=== PATIENT | male | born 1995 | race Caucasian/White ===

== ENCOUNTER 2021-01-11 12:59 | Outpatient (CLI) | payer MEDICARE, MEDICAID, SELFPAY ==
--- NOTE | 2021-01-11 12:45 | RT.EKG_ITS ---
APPROVED REPORT Exam: Resting ECG Reason for Exam: Baseline for use of stimulant medication Patient Location: O HR:74 bpm ECG Measurements Heart Rate 74 AXIS SC 132 P 62 QRSd 102 QRS 2 QT 361 T 2 QTc 400 Conclusion Sinus rhythm...normal P axis, V-rate 60- 99 Probable left atrial enlargement...P >50mS, <-0.10mV V1
== END 2021-01-11 13:00 | disposition home or self-care (01) ==
LOC: DI.KIM 13:01
PROVIDERS: PCP Nurse Practitioner Family; Visit Provider Nurse Practitioner Family
DX: Z79.899 Other long term (current) drug therapy (principal)
CPT/HCPCS: 93010

== ENCOUNTER 2021-02-13 04:17 | Outpatient (CLI) | payer MEDICARE, MEDICAID, SELFPAY ==
[2021-02-13 09:58] LABS: Cholesterol 150 mg/dL (<200); HDL Cholesterol 52 mg/dL (40-60)
[2021-02-13 11:33] LABS: Triglyceride < 25 mg/dL (<150)
[2021-02-13 12:26] LABS: LDL CHOLESTEROL 94 mg/dL (<100)
[2021-02-14 12:08] LABS: HIV-1/2 Ag & Ab Screen Negative (Negative)
[2021-02-14 15:03] LABS: Hepatitis C Ab w Rflx HCV PCR Negative (Negative)
== END 2021-02-13 04:18 | disposition home or self-care (01) ==
LOC: LBO 04:17
PROVIDERS: PCP Nurse Practitioner Family; Visit Provider Nurse Practitioner Family
DX: F90.0 Attention-deficit hyperactivity disorder, predominantly inattentive type (principal); Z79.899 Other long term (current) drug therapy; Z11.4 Encounter for screening for human immunodeficiency virus [HIV]; Z11.59 Encounter for screening for other viral diseases
CPT/HCPCS: 36415; 80061; 83721; 86803; 87389

== ENCOUNTER 2022-06-19 03:24 | Outpatient (CLI) | payer MEDICARE, MEDICAID, SELFPAY ==
[2022-06-19 14:24] LABS: Abs Immature Grans 0.04 10^3/uL (0.0-0.06); Absolute Basophil Count 0.05 10^3/uL (0.0-0.2); Absolute Eosinophil Count 0.56 10^3/uL (0.0-0.7); Absolute Lymphocyte Count 1.81 10^3/uL (1.2-3.4); Absolute Monocyte Count 0.76 10^3/uL (0.1-0.8); Absolute Neutrophil Count 4.21 10^3/uL (1.2-6.7); Basophils % 0.7; Eosinophils % 7.5; HGB 15.1 g/dL (13.5-17.5); Immature Grans % 0.5; Lymphocytes % 24.4; MCH 29.9 pg (27.0-33.0); MCHC 34.3 % (32.0-36.0); MCV 87 fL (80-95); MPV 9.9 fL (8.0-11.0); Monocytes % 10.2; Neutrophils % 56.7; Platelet Count 211 10^3/uL (130-400); RBC 5.05 10^6/uL (4.36-5.78); RDW 11.7 % (11.8-14.1); RDW-SD 37.5 fL; WBC 7.43 10^3/uL (4.4-10.8)
[2022-06-19 15:05] LABS: ALT 18 U/L (16-63); AST 20 U/L (15-37); Albumin 4.2 g/dL (3.4-5.0); Alkaline Phosphatase 71 U/L (46-116); Anion Gap 7.5 mmol/L (3-11); BUN 15 mg/dL (7-18); Bilirubin, Total 0.4 mg/dL (0.2-1.0); CO2 31.5 mmol/L (21.0-32.0); Calcium 8.9 mg/dL (8.5-10.1); Chloride 101 mmol/L (98-107); Estimated GFR 106.45 (mL/min/1.73m2); Glucose 101 mg/dL (74-106); Potassium 3.9 mmol/L (3.5-5.1); Sodium 140 mmol/L (136-145); TSH (W/Ref FT4) 1.33 uIU/mL (0.36-3.74); Total Protein 7.7 g/dL (6.4-8.2)
[2022-06-20 11:29] LABS: Ceruloplasmin 21.2 mg/dL
== END 2022-06-19 03:25 | disposition home or self-care (01) ==
LOC: LBO 03:25
PROVIDERS: PCP Nurse Practitioner Family; Visit Provider Nurse Practitioner Family
DX: R25.1 Tremor, unspecified (principal); F90.0 Attention-deficit hyperactivity disorder, predominantly inattentive type; Z79.899 Other long term (current) drug therapy; E83.01 Wilson's disease
CPT/HCPCS: 36415; 80053; 82390; 84443; 85025

== ENCOUNTER 2022-08-09 09:55 | Emergency (ER) | payer MEDICARE, MEDICAID, SELFPAY ==
--- NOTE | 2022-08-09 10:00 | DI.CT_ITS ---
Exam(s) CT HEAD WO EXAM: CT HEAD WO CLINICAL HISTORY: headache, tremor of right upper extremity and head. TECHNIQUE: Imaging Protocol: Axial computed tomography images with coronal and sagittal reformatted images were created and reviewed COMPARISON: No exams were available for comparison FINDINGS: Ventricles and Extra axial spaces: Normal in size and morphology for the patient's age. Hemorrhage: None. Cerebral parenchyma: Normal. Midline shift: None. Brainstem/Cerebellum: Normal. Calvarium: Normal. Visualized Paranasal sinuses/Mastoids: Minimal mucosal thickening. Soft Tissues: Unremarkable. IMPRESSION: No acute intracranial process. RADIATION DOSE DELIVERED: 733.95mGy.cm Total DLP DATA REPOSITORY: All CT scans at this facility are submitted to the National Radiology Data Registry (NRDR) Dose Index Registry (DIR) with the [employer] (A[employer]). RADIATION OPTIMIZATION: All CT scans at this facility use at least one of these dose optimization te chniques: automated exposure control; mA and/or kV adjustment per patient size (includes targeted exa ms where dose is matched to clinical indication); or iterative reconstruction.
[2022-08-09 10:01] VITALS: BP 145/74; PULSE 100; RESP 16; TEMP 36.7; O2SAT 100
--- NOTE | 2022-08-09 10:19 | ED.GENADUL_ITS ---
Discharge Plan Disposition Patient Disposition: Home Condition: Improving Discharge Details Chief Complaint: GenMedical Clinical Impression: Tremor Primary Care Provider: Glenny De La Paz ED Provider: Claudio Palma Home Meds and New Rx's Prescriptions: No Action triamcinolone acetonide 0.5 % cream 1 applic topical .BID-QID Qty: 15 0RF Rx Instructions: Apply thin film to affected area(s) two-four times daily until resolution cetirizine 10 mg tablet 10 mg PO DAILY Qty: 30 0RF omeprazole 20 mg capsule,delayed release(DR/EC) 20 mg PO DAILY Qty: 90 1RF Rx Instructions: Take 20 mg once daily in the morning at least 30 minutes before first meal dextroamphetamine-amphetamine [Adderall XR] 10 mg capsule,extended release 24hr 10 mg PO QAM MDD 10 mg Qty: 28 0RF epinephrine [EpiPen 2-Cortes] 0.3 mg/0.3 mL auto-injector 0.3 mg IM ONCE Qty: 2 0RF Rx Instructions: Administer as directed for allergic reaction. Administer second dose if no change after 10 minutes. Discharge Instructions Instructions: Tremors (ED) Additional Instructions: Please follow-up with neurology team next week as scheduled. Please return to the emergency department for any worsening symptoms. Medical Decision Making 27-year-old male history of ADHD, developmental delay, referred in for evaluation of tremor over the past several months including his head and right upper extremity, patient endorses subjective balance issue yesterday when going downstairs carrying a box, no recent fall no recent trauma no new medications. Patient is afebrile nontoxic alert oriented, no focal deficits, cranial nerves intact strength intact 5-5 upper and lower extremities, no ataxia no speech deficits. Fine intermittent brief tremor of right upper extremity involving hand wrist and forearm, lasting less than a few seconds, no tremor of head or neck. Will obtain basic labs and CT head as patient has had no neuroimaging to evaluate this condition, with the intent of ruling out intracranial mass edema or bleed which are all unlikely at this time. We will also assess for electrolyte abnormalities. Consider anxiety versus functional tremor versus medication reaction although less likely given localized symptoms. Will arrange neurology follow-up for patient upon the likely discharge from emergency department 11: 34 patient resting comfortably no acute distress. Labs and imaging unremarkable. Will refer for outpatient neuro evaluation. HPI General Date/Time Provider Initiated Documentation: 08/09/22 09:56 . HPI Narrative: 27-year-old male history of ADHD, developmental delay, brought in for evaluation of chronic tremor intermittent in nature over the past several months including his head and his right upper extremity, tremors last for a few seconds at a time, no associated numbness or weakness. Has had prior blood work but no imaging. Patient did feel unbalanced while going downstairs yesterday carrying a box. No recent trauma. Patient does take Adderall. No new medications. Related Data Home Medications Medication Instructions Recorded Confirmed cetirizine 10 mg tablet 10 mg PO DAILY hives #30 tabs 08/30/21 08/09/22 triamcinolone acetonide 0.5 % 1 applic topical .BID-QID #15 grams 09/26/21 08/09/22 topical cream epinephrine 0.3 mg/0.3 mL 0.3 mg (0.3 mL) IM ONCE ##2 05/29/22 08/09/22 injection, auto-injector (EpiPen 2-Cortes) dextroamphetamine-amphetamine ER 10 mg PO QAM #28 tab-caps 06/26/22 08/09/22 10 mg 24hr capsule,extend release (Adderall XR) omeprazole 20 mg capsule,delayed 20 mg PO DAILY #90 caps 06/26/22 08/09/22 release Previous Rx's Medication Instructions Recorded cetirizine 10 mg tablet 10 mg PO DAILY hives #30 tabs 08/30/21 triamcinolone acetonide 0.5 % 1 applic topical .BID-QID #15 grams 09/26/21 topical cream epinephrine 0.3 mg/0.3 mL 0.3 mg (0.3 mL) IM ONCE ##2 05/29/22 injection, auto-injector (EpiPen 2-Cortes) dextroamphetamine-amphetamine ER 10 mg PO QAM #28 tab-caps 06/26/22 10 mg 24hr capsule,extend release (Adderall XR) omeprazole 20 mg capsule,delayed 20 mg PO DAILY #90 caps 06/26/22 release Allergies Allergy/AdvReac Type Severity Reaction Status Date / Time venom-honey bee Allergy Severe Hives Verified 08/09/22 10:05 General Stated Complaint: GenMedical EDDA: 3 Review of Systems Narrative: Review of Systems Constitutional: negative Eyes: negative ENT: negative Cardiovascular: negative Respiratory: negative Gastrointestinal: negative : negative Musculoskeletal: negative Skin: negative Neurologic: Tremor Psych: negative PFSH All Active Problems (Updated 08/09/22 @ 11:35 by Claudio Palma MD) Tremor (Acute) Gastroesophageal reflux disease (Chronic) Developmental disorder (Chronic) Constipation (Chronic 02/05/13) Attention deficit hyperactivity disorder, 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) Medical History (Updated 08/09/22 @ 11:35 by Claudio Palma MD) Acne (02/03/15) sp accutane Food allergy (10/05/13) Thought to have had allergy to shellfish but then went to Allergy-Immunology and had skin testing which was negative and has been consuming shellfish since that time without issue (per mother) Patent pressure equalization (PE) tube (02/05/13) Surgical History (Updated 06/26/22 @ 12:29 by Glenny De La Paz NP) Status post routine circumcision Family History Mother Family history unknown Father Family history unknown Social History Smoking/Tobacco Use Status: Never Smoking risk assessment performed?: Yes Alcohol Intake: never Drug use: Never Substance use type: does not use Adopted: Yes Household members: family Number of Children: 0 Communication Needs: None 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 [employer] Pets and animals: Yes Pets and animals: dog(s) Current gender identity: male What type of physical activity do you participate in: weight lifting and additional Details: bball, gold, soccer Duration: 45-60 minutes/day Frequency: daily Seatbelt use: always Exam Narrative Exam Narrative: Physical Examination General: alert, awake, cooperative, resting comfortably, no acute distress HEENT: normocephalic, atraumatic; PERRL, EOM intact, conjunctiva normal; no na mahesh discharge; moist mucous membranes, oral and pharyngeal mucosa normal, tolerating secretions Neck: supple, trachea midline; full ROM Chest: normal to inspection Respiratory: normal respiratory effort, speaking in full sentences, clear to auscultation, no wheezing, rales or rhonchi Cardiac: regular rate, regular rhythm, S1S2 intact, no murmurs rubs or gallops GI: abdomen soft, non-tender, non-distended; no palpable mass or hepatosplenomegaly Skin: no lesions, rashes or trauma appreciated Neuro: AAOx3, normal speech, moving all extremities; cranial nerves II through XII intact, 5-5 strength upper and lower extremities, no ataxia no speech deficits; intermittent fine tremor in the right upper extremity involving hand wrist and forearm brief in nature and easily extinguishable Psych: Appropriate mood and affect Course Vital Signs Vital signs: Vital Signs Temperature 36.7 C 08/09/22 10:01 Pulse 100 H 08/09/22 10:01 Respiratory Rate 16 08/09/22 10:01 Blood Pressure 145/74 H 08/09/22 10:01 Pulse Oximetry 100 08/09/22 10:01 Temperature 36.7 C 08/09/22 10:01 Temperature Source Temporal Artery Scan 08/09/22 10:01 Pulse 100 H 08/09/22 10:01 Respiratory Rate 16 08/09/22 10:01 Respiratory Effort Non-Labored 08/09/22 10:06 Blood Pressure 145/74 H 08/09/22 10:01 Blood Pressure Position Sitting 08/09/22 10:01 Pulse Oximetry 100 08/09/22 10:01 Oxygen Delivery Method Room Air 08/09/22 10:01 Oxygen Flow Rate 0 08/09/22 10:01
[2022-08-09 10:57] LABS: Abs Immature Grans 0.11 10^3/uL (0.0-0.06); Absolute Basophil Count 0.07 10^3/uL (0.0-0.2); Absolute Eosinophil Count 0.57 10^3/uL (0.0-0.7); Absolute Lymphocyte Count 1.55 10^3/uL (1.2-3.4); Absolute Neutrophil Count 3.52 10^3/uL (1.2-6.7); Basophils % 1.1; Eosinophils % 8.6; HCT 42.3 % (40.0-50.0); HGB 14.6 g/dL (13.5-17.5); Immature Grans % 1.7; Lymphocytes % 23.4; MCHC 34.5 % (32.0-36.0); MCV 87 fL (80-95); MPV 9.8 fL (8.0-11.0); Monocytes % 12.1; Neutrophils % 53.1; Platelet Count 204 10^3/uL (130-400); RBC 4.87 10^6/uL (4.36-5.78); RDW 11.9 % (11.8-14.1); RDW-SD 37.7 fL; WBC 6.62 10^3/uL (4.4-10.8)
[2022-08-09 11:13] LABS: ALT 15 U/L (16-63); AST 17 U/L (15-37); Alkaline Phosphatase 82 U/L (46-116); Anion Gap 4.2 mmol/L (3-11); BUN 13 mg/dL (7-18); Bilirubin, Total 0.4 mg/dL (0.2-1.0); CO2 31.8 mmol/L (21.0-32.0); CREATININE 0.9 mg/dL (0.70-1.30); Calcium 8.9 mg/dL (8.5-10.1); Chloride 101 mmol/L (98-107); Glucose 92 mg/dL (74-106); Potassium 4.4 mmol/L (3.5-5.1); Sodium 137 mmol/L (136-145); Total Protein 7.4 g/dL (6.4-8.2)
[2022-08-09 11:30] VITALS: BP 122/88; PULSE 76; RESP 14; TEMP 37; O2SAT 99
--- NOTE | 2022-08-09 17:55 | NUR.NOTE ---
Nursing Note: PT info faxed to Neurology for follow up next week for tremors. Karla, ED
== END 2022-08-09 11:52 | disposition home or self-care (01) ==
PROVIDERS: Emergency Provider Emergency Medicine; PCP Nurse Practitioner Family
DX: R25.1 Tremor, unspecified (principal)
CPT/HCPCS: 80053; 99284; 70450; 83735; 85025; 99282

== ENCOUNTER 2022-08-28 13:39 | Outpatient (CLI) | payer MEDICARE, MEDICAID, SELFPAY ==
--- NOTE | 2022-08-28 13:30 | RT.EKG_ITS ---
APPROVED REPORT Exam: Resting ECG Reason for Exam: Screening due to use of stimulant medication Patient Location: O HR:72 bpm ECG Measurements Heart Rate 72 AXIS NJ 133 P 63 QRSd 106 QRS -9 QT 382 T 2 QTc 419 Conclusion Sinus rhythm...normal P axis, V-rate 50- 99
== END 2022-08-28 13:40 | disposition home or self-care (01) ==
LOC: DI.KIM 13:39
PROVIDERS: PCP Nurse Practitioner Family; Visit Provider Nurse Practitioner Family
DX: Z51.81 Encounter for therapeutic drug level monitoring (principal)
CPT/HCPCS: 93010

== ENCOUNTER 2022-10-08 21:52 | Emergency (ER) | payer MEDICARE, MEDICAID, SELFPAY ==
[2022-10-08 21:54] VITALS: BP 128/88; PULSE 100; RESP 18; TEMP 36.9; O2SAT 97
[2022-10-08 22:45] VITALS: RESP 19
--- NOTE | 2022-10-08 23:13 | W.ED.GENAD ---
Discharge Plan Disposition Patient Disposition: Home Condition: Good Discharge Details Clinical Impression: Tremor Primary Care Provider: Glenny De La Paz ED Provider: Jose J Trujillo Home Meds and New Rx's Prescriptions: Continued triamcinolone acetonide 0.5 % cream 1 applic topical .BID-QID Qty: 15 0RF Rx Instructions: Apply thin film to affected area(s) two-four times daily until resolution cetirizine 10 mg tablet 10 mg PO DAILY Qty: 30 0RF dextroamphetamine-amphetamine [Adderall XR] 10 mg capsule,extended release 24hr 10 mg PO QAM MDD 10 mg Qty: 28 0RF omeprazole 20 mg capsule,delayed release(DR/EC) 20 mg PO DAILY Qty: 90 1RF Rx Instructions: Take 20 mg once daily in the morning at least 30 minutes before first meal epinephrine [EpiPen 2-Cortes] 0.3 mg/0.3 mL auto-injector 0.3 mg IM ONCE Qty: 2 0RF Rx Instructions: Administer as directed for allergic reaction. Administer second dose if no change after 10 minutes. dextroamphetamine-amphetamine [Adderall XR] 10 mg capsule,extended release 24hr 10 mg PO QAM MDD 10 Qty: 28 0RF dextroamphetamine-amphetamine [Adderall XR] 10 mg capsule,extended release 24hr 10 mg PO QAM MDD 10 Qty: 28 0RF Discharge Instructions Instructions: Tremors (ED) Additional Instructions: Your laboratory work-up has returned normal. Please follow-up closely with your primary care provider. If you notice any worsening of your symptoms, or any new symptoms such as vomiting, diarrhea, fever, chills, shortness of breath, chest pain, numbness, weakness, or fainting , please return immediately to the emergency department for reevaluation. Please follow up with your primary care provider as soon as possible for reassessment and reevaluation. As always, it was a pleasure participating in your medical care today. Referrals: Glenny De La Paz NP [Primary Care Provider] - Discharge Data Discharge Date/Time-TO BE ENTERED AT DEPARTURE: 10/09/22 00:36 Medical Decision Making <Roque Jeffries NP - Last Filed: 10/10/22 09:58> Patient presenting to the emergency department for chief complaint of upper and lower extremity tremors. This started at random this afternoon and did not stop until almost before arrival to the emergency department. Patient states previous history of right upper extremity tremors which she was seen in the emergency department for and discharged with follow-up to neurology which is taking place in approximately 1 month. Primary care provider has seen patient and felt that overuse syndrome of right upper extremity was more than likely the cause of tremors. Patient and mother deny any specific exhibiting factors for precursors to symptoms starting and deny that they did any treatments to get shaking to stop. Patient does have past medical history of of significant ADHD, developmental disorder. Neurological exam was completely unremarkable. At one moment there was a fine tremor noted for only brief seconds of the right upper extremity but this was distractible as soon as I began performing further testing tremor stopped and did not return. All other aspects of the exam were benign and unremarkable. At this time I do not feel that patient requires head CT imaging given that this was just performed a couple months ago and was negative for similar complaint. We will recheck patient's lab including thyroid. Patient does state slight aching of muscles so we will give acetaminophen pending results. <Jose J Trujillo, - Last Filed: 10/09/22 00:31> Patient presenting to the emergency department for chief complaint of upper and lower extremity tremors. This started at random this afternoon and did not stop until almost before arrival to the emergency department. Patient states previous history of right upper extremity tremors which she was seen in the emergency department for and discharged with follow-up to neurology which is taking place in approximately 1 month. Primary care provider has seen patient and felt that overuse syndrome of right upper extremity was more than likely the cause of tremors. Patient and mother deny any specific exhibiting factors for precursors to symptoms starting and deny that they did any treatments to get shaking to stop. Patient does have past medical history of of significant ADHD, developmental disorder. Neurological exam was completely unremarkable. At one moment there was a fine tremor noted for only brief seconds of the right upper extremity but this was distractible as soon as I began performing further testing tremor stopped and did not return. All other aspects of the exam were benign and unremarkable. At this time I do not feel that patient requires head CT imaging given that this was just performed a couple months ago and was negative for similar complaint. We will recheck patient's lab including thyroid. Patient does state slight aching of muscles so we will give acetaminophen pending results. 12:[address] Trujillo's documentation Patient was signed out to me by my colleague Ernei Jeffries. Please refer to his HPI, physical exam, assessment and plan. At time of signout we are awaiting laboratory work-up, laboratory work-up has returned normal, patient appears notably clinically well, no tremor at all on reassessment. No evidence of acute focal neurologic deficit. Patient stable for discharge. Discussed plan with family and they are in agreement. I have extensively reviewed the treatment plan and discharge instructions with the patient and their family. I have addressed all patient concerns at this time. The patient and family was made aware of what symptoms to monitor for that would warrant a return to the emergency department. Discussed the plan with the patient and family, they demonstrate verbal understanding and agreement with our assessment and plan at this time. The documentation in this chart was dictated using [employer] dictation software. Please excuse any dictation errors. HPI <Roque Jeffries NP - Last Filed: 10/10/22 09:58> General Mode of arrival: ambulatory. Date/Time Provider Initiated Documentation: 10/08/22 21:54. Limitations to Documentation: no limitations. Information obtained by: patient, family and RN notes reviewed. History of Present Illness 27 year old M presents to the emergency department with the chief complaint of Upper and lower extremity tremors, described as mild, with intensity rated at 2. Quality is described as aching, and is localized to the lower extremity. Patient started experiencing this day(s) (7) and it has been constant. No relieving factors improve symptom(s), No exacerbating factors reported . Patient notes no other symptoms.. Patient did receive the following treatments prior to arrival, none Related Data Home Medications Medication Instructions Recorded Confirmed cetirizine 10 mg tablet 10 mg PO DAILY hives #30 tabs 08/30/21 08/28/22 triamcinolone acetonide 0.5 % 1 applic topical .BID-QID #15 grams 09/26/21 08/28/22 topical cream epinephrine 0.3 mg/0.3 mL 0.3 mg (0.3 mL) IM ONCE ##2 05/29/22 08/28/22 injection, auto-injector (EpiPen 2-Cortes) omeprazole 20 mg capsule,delayed 20 mg PO DAILY #90 caps 06/26/22 08/28/22 release dextroamphetamine-amphetamine ER 10 mg PO QAM #28 tab-caps 08/28/22 08/28/22 10 mg 24hr capsule,extend release (Adderall XR) dextroamphetamine-amphetamine ER 10 mg PO QAM #28 tab-caps 09/12/22 10 mg 24hr capsule,extend release (Adderall XR) dextroamphetamine-amphetamine ER 10 mg PO QAM #28 tab-caps 09/12/22 10 mg 24hr capsule,extend release (Adderall XR) Previous Rx's Medication Instructions Recorded cetirizine 10 mg tablet 10 mg PO DAILY hives #30 tabs 08/30/21 triamcinolone acetonide 0.5 % 1 applic topical .BID-QID #15 grams 09/26/21 topical cream epinephrine 0.3 mg/0.3 mL 0.3 mg (0.3 mL) IM ONCE ##2 05/29/22 injection, auto-injector (EpiPen 2-Cortes) omeprazole 20 mg capsule,delayed 20 mg PO DAILY #90 caps 06/26/22 release dextroamphetamine-amphetamine ER 10 mg PO QAM #28 tab-caps 08/28/22 10 mg 24hr capsule,extend release (Adderall XR) dextroamphetamine-amphetamine ER 10 mg PO QAM #28 tab-caps 09/12/22 10 mg 24hr capsule,extend release (Adderall XR) dextroamphetamine-amphetamine ER 10 mg PO QAM #28 tab-caps 09/12/22 10 mg 24hr capsule,extend release (Adderall XR) Allergies Allergy/AdvReac Type Severity Reaction Status Date / Time venom-honey bee Allergy Severe Hives Verified 08/28/22 14:52 General Stated Complaint: GenMedical EDDA: 4 Review of Systems <Roque Jeffries NP - Last Filed: 10/10/22 09:58> Constitutional Constitutional: Denies chills, Denies fever(s), Denies frequent falls, Denies headache(s), Denies malaise, Denies poor appetite and Denies weakness Eyes Eyes: Denies change in vision ENT Ears, Nose, Mouth, and Throat: Denies vertigo, Denies dizziness and Denies headache(s) Cardiovascular Cardiovascular: Denies chest pain, Denies syncope, Denies rapid heart rate, Denies irregular heart rhythm and Denies dyspnea Respiratory Respiratory: Denies cough and Denies dyspnea Gastrointestinal Gastrointestinal: Denies abdominal pain, Denies diarrhea, Denies nausea and Denies vomiting Genitourinary Genitourinary: Denies oliguria Musculoskeletal Musculoskeletal: Reports as per HPI, Denies muscle cramps, Denies muscle weakness, Denies numbness and Denies tingling Integumentary/Breasts Skin/Breast: Denies rash Neurologic Neurologic: Reports as per HPI, Reports abnormal movements, Denies behavioral changes, Denies confusion, Denies vertigo, Denies dizziness, Denies syncope, Denies frequent falls, Denies headache(s), Denies localized weakness, Denies numbness, Denies convulsions, Denies seizure-like activity, Denies sensory deficit, Denies tingling, Denies paresthesias and Denies weakness Psychiatric Psychiatric: Denies anxiety, Denies behavioral changes and Denies confusion PFS <Roque Jeffries NP - Last Filed: 10/10/22 09:58> All Active Problems (Updated 10/09/22 @ 00:29 by Jose J Trujillo DO) Tremor (Acute) Right forearm pain (Acute) Gastroesophageal reflux disease (Chronic) Developmental disorder (Chronic) Constipation (Chronic 02/05/13) Attention deficit hyperactivity disorder, 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) Medical History Acne (02/03/15) sp accutane Food allergy (10/05/13) Thought to have had allergy to shellfish but then went to Allergy-Immunology and had skin testing which was negative and has been consuming shellfish since that time without issue (per mother) Patent pressure equalization (PE) tube (02/05/13) Surgical History Status post routine circumcision Family History Mother Depression Father Alcohol use disorder Asthma Depression Heart disease Hypertension Paternal Grandfather Alcohol use disorder Maternal Grandfather Alcohol use disorder Paternal Grandmother Alcohol use disorder Other Adopted Social History Smoking/Tobacco Use Status: Never Smoking risk assessment performed?: Yes Alcohol Intake: never Drug use: Never Substance use type: does not use Adopted: Yes Caregiver/Support person: Yes Foster care: Yes Household members: family Housing: house Number of Children: 0 Communication Needs: None Education Level: high school Do you need help understanding health information?: Always 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 [employer] Pets and animals: Yes Pets and animals: dog(s) Sexually active: No Do you think of yourself as: straight/heterosexual Current gender identity: male What is your relationship status?: never How often do you talk on the phone with friends or family?: twice per week How often do you get together with friends or relatives?: three or more times per week Do you belong to any clubs or organized social groups?: yes Panel score (0-1 are the most socially isolated patients): 2 What type of physical activity do you participate in: weight lifting and additional Details: bball, golf, bowling, walking Duration: 15-30 minutes/day Frequency: daily Phoebe/Sikh: None Seatbelt use: always Helmet use: Yes Drive intox or ride w/intox 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: No Do you feel safe at home: Yes Do you feel safe in your relationship?: Yes Exam <Roque Jeffries NP - Last Filed: 10/10/22 09:58> Const General: cooperative, healthy appearing, no acute distress and well groomed Orientation: alert, awake and oriented x3 HENMT Head: normal to inspection Ears: hearing grossly normal bilaterally and TM's normal bilaterally Mouth: oral mucosae normal and moist mucous membranes Throat: posterior oropharynx normal Eyes Visual Muñoz: normal visual muñoz by confrontation Alignment and Position: alignment normal Periorbital: periorbital findings normal Eyelids: eyelids normal Sclera: sclerae normal Cornea: corneas normal Pupils: PERRL EOM: EOM intact bilaterally Neck Neck: normal visual inspection, full ROM, no lymphadenopathy and no meningeal signs Resp Effort & Inspection: normal respiratory effort and able to speak in complete sentences Auscultation: clear to auscultation bilaterally Cardio Rate: regular rate Rhythm: regular rhythm Heart Sounds: S1 normal and S2 normal Neuro General: patient alert, patient awake, patient oriented x3, gait normal, tone normal, moves all extremities, CN's II-XI intact bilaterally and not confused Cranial Nerves: CN's II-XI intact bilaterally Cognition: normal cognition Speech: speech normal Gait: normal gait Motor: muscle tone normal throughout, strength 5/5 throughout, no pronator drift, no movement abnormalities noted and no fasciculations Sensory Exam: no sensory deficits noted DTR's: Rt Brachioradialis: 2+, Lt Brachioradialis: 2+, Rt Patellar: 2+, Lt Patellar: 2+, Rt Ankle: 2+ and Lt Ankle: 2+ Coordination: [id number] test normal, Romberg test normal, Does not sway with eyes open, rapid alternating movement UE normal and rapid alternating movement LE normal Course <Roque Jeffries NP - Last Filed: 10/10/22 09:58> Vital Signs Vital signs: Vital Signs Temperature 36.9 C 10/08/22 21:54 Pulse 100 H 10/08/22 21:54 Respiratory Rate 18 10/08/22 21:54 Blood Pressure 128/88 10/08/22 21:54 Pulse Oximetry 97 10/08/22 21:54 Temperature 36.9 C 10/08/22 21:54 Temperature Source Oral 10/08/22 21:54 Pulse 100 H 10/08/22 21:54 Respiratory Rate 19 10/08/22 22:45 Respiratory Effort Normal, Non-Labored 10/08/22 22:45 Respiratory Depth Normal 10/08/22 22:45 Respiratory Pattern Normal 10/08/22 22:45 Blood Pressure 128/88 10/08/22 21:54 Blood Pressure Position Sitting 10/08/22 21:54 Pulse Oximetry 97 10/08/22 21:54 Oxygen Delivery Method Room Air 10/08/22 21:54 Oxygen Flow Rate 0 10/08/22 21:54 Pain Level 10 10/08/22 21:54 Sign Out <Roque Jeffries NP - Last Filed: 10/10/22 09:58> Sign Out Data: Sign Out Comment: Patient signed out pending review of labs, reassessment and disposition for resolved tremors. Suspect discharge disposition with patient to continue follow-up with neurology as previously arranged. Last updated by Roque Jeffries NP at 10/08/22 23:41
[2022-10-08] MEDS: Acetaminophen 325 MG TAB 650 MG PO (23:26)
[2022-10-08 23:34] LABS: Abs Immature Grans 0.04 10^3/uL (0.0-0.06); Absolute Basophil Count 0.05 10^3/uL (0.0-0.2); Absolute Lymphocyte Count 2.02 10^3/uL (1.2-3.4); Absolute Neutrophil Count 4.55 10^3/uL (1.2-6.7); Basophils % 0.6; Eosinophils % 4.9; HCT 42.4 % (40.0-50.0); HGB 14.4 g/dL (13.5-17.5); Immature Grans % 0.5; Lymphocytes % 24.8; MCH 29.5 pg (27.0-33.0); MCV 87 fL (80-95); MPV 9.8 fL (8.0-11.0); Monocytes % 13.5; Neutrophils % 55.7; Platelet Count 234 10^3/uL (130-400); RBC 4.88 10^6/uL (4.36-5.78); RDW 11.9 % (11.8-14.1); WBC 8.16 10^3/uL (4.4-10.8)
[2022-10-08 23:58] LABS: ALT 17 U/L (16-63); AST 17 U/L (15-37); Albumin 4.1 g/dL (3.4-5.0); Alkaline Phosphatase 84 U/L (46-116); Anion Gap 7.3 mmol/L (3-11); BUN 16 mg/dL (7-18); Bilirubin, Total 0.3 mg/dL (0.2-1.0); CO2 30.7 mmol/L (21.0-32.0); CREATININE 1.1 mg/dL (0.70-1.30); Calcium 8.6 mg/dL (8.5-10.1); Chloride 101 mmol/L (98-107); Estimated GFR 94.95 (mL/min/1.73m2); Glucose 96 mg/dL (74-106); Magnesium 2.2 mg/dL (1.8-2.4); Potassium 3.9 mmol/L (3.5-5.1); Sodium 139 mmol/L (136-145); Total Protein 7.1 g/dL (6.4-8.2)
[2022-10-09 00:35] VITALS: BP 127/91; PULSE 77; RESP 22; TEMP 36.6; O2SAT 99
== END 2022-10-09 00:36 | disposition home or self-care (01) ==
PROVIDERS: Nurse Practitioner Family; Emergency Provider Student in an Organized Health Care Education/Training Program; PCP Nurse Practitioner Family
DX: R25.1 Tremor, unspecified (principal); F90.9 Attention-deficit hyperactivity disorder, unspecified type
CPT/HCPCS: 80053; 99283; 83735; 84443; 85025

== ENCOUNTER → 2022-12-17 09:47 | Outpatient (BNVA) | payer MEDICARE, MEDICAID, SELFPAY | PROVIDERS: PCP Nurse Practitioner Family; Referring Provider Nurse Practitioner Family; Visit Provider Psychiatry & Neurology Neurology | DX: R25.1 Tremor, unspecified (principal) | CPT/HCPCS: 99214 ==

== ENCOUNTER 2024-09-12 22:41 | Emergency (ER) | payer MEDICARE, MEDICAID, SELFPAY ==
[2024-09-12 22:43] VITALS: BP 117/74; PULSE 119; RESP 20; TEMP 38.8; O2SAT 98
[2024-09-12 22:50] VITALS: BP 117/74; PULSE 119; RESP 20; TEMP 38.8; O2SAT 98
--- NOTE | 2024-09-12 23:12 | ED.GENADUL_ITS ---
Discharge Plan Disposition Patient Disposition: Home Condition: Good Discharge Details Clinical Impression: Fever, Upper respiratory infection, Headache Primary Care Provider: Elba Rausch ED Provider: Analia Estes Home Meds and New Rx's Prescriptions: Continued multivitamin Tablet 1 tab PO DAILY dextroamphetamine-amphetamine [Adderall XR] 10 mg capsule,extended release 24hr 10 mg PO QAM MDD 10 mg Qty: 28 0RF dextroamphetamine-amphetamine [Adderall XR] 10 mg capsule,extended release 24hr 10 mg PO QAM MDD 10 Qty: 28 0RF dextroamphetamine-amphetamine [Adderall XR] 10 mg capsule,extended release 24hr 10 mg PO QAM MDD 10 mg Qty: 28 0RF epinephrine [EpiPen 2-Cortes] 0.3 mg/0.3 mL auto-injector 0.3 mg IM ONCE Qty: 2 6RF Rx Instructions: Administer as directed for allergic reaction. Administer second dose if no change after 10 minutes. Discharge Instructions Instructions: Fever, Adult ED, Upper Respiratory Infection ED Additional Instructions: 650mg acetaminophen and 400mg ibuprofen over the counter for fever and headache You can alternate every three hours for example ibuprofen at noon, acetaminophen at 3pm, ibuprofen at 6pm, acetaminophen at 9pm, and so on. Call your primary care doctor in the morning to schedule an appointment for within the following 48 hours to followup on your visit here. Get an oral thermometer for temperature checks. Return to the emergency department for new or worsening symptoms including fever that does not respond to medication, worsening headache, neck pain or stiffness, vomiting, difficulty breathing, or if you have any other concerns. Referrals: Elba Rausch, ZHOU [Primary Care Provider] - [facility] General Mode of arrival: ambulatory . Date/Time Provider Initiated Documentation: 09/12/24 22:42 . Limitations to Documentation: no limitations . Information obtained by: patient and family . HPI Narrative: 29yo M with hx GERD, ADHD, developmental delay, presenting for fever and he adache. History from patient and mother at bedside. [place] well yesterday. This morning woke with headache for which he was given ibuprofen. This seemed to help. As the day went on he developed cough, sore throat, rhinnorhea, and body aches. Mother checked his temperature at 9pm with infrafred thermometer and temp was 104; took advil at that point. Repeat temp (via the same method) was 106 an hour later. Highest temp was noted to be 109. Decreased PO intake today 2/t sore throat. No neck pain, photophobia, vision changes, numbness, focal weakness, nausea, vomiting, diarrhea, abdominal pain, dysuria, hematuria, shortness of breath, or chest pain. Decreased PO intake today 2/t sore throat. Related Data Home Medications ?Medication ?Instructions ?Recorded ?Confirmed multivitamin 1 tab PO DAILY 12/17/22 09/12/24 epinephrine 0.3 mg/0.3 mL 0.3 mg (0.3 mL) IM ONCE ##2 03/23/24 09/12/24 injection, auto-injector (EpiPen 2-Cortes) dextroamphetamine-amphetamine ER 10 mg PO QAM #28 tab-caps 09/06/24 09/12/24 10 mg 24hr capsule,extend release (Adderall XR) dextroamphetamine-amphetamine ER 10 mg PO QAM #28 tab-caps 09/06/24 09/12/24 10 mg 24hr capsule,extend release (Adderall XR) dextroamphetamine-amphetamine ER 10 mg PO QAM #28 tab-caps 25 09/12/24 10 mg 24hr capsule,extend release (Adderall XR) Previous Rx's ?Medication ?Instructions ?Recorded epinephrine 0.3 mg/0.3 mL 0.3 mg (0.3 mL) IM ONCE ##2 03/23/24 injection, auto-injector (EpiPen 2-Cortes) dextroamphetamine-amphetamine ER 10 mg PO QAM #28 tab-caps 09/06/24 10 mg 24hr capsule,extend release (Adderall XR) dextroamphetamine-amphetamine ER 10 mg PO QAM #28 tab-caps 09/06/24 10 mg 24hr capsule,extend release (Adderall XR) dextroamphetamine-amphetamine ER 10 mg PO QAM #28 tab-caps 09/06/24 10 mg 24hr capsule,extend release (Adderall XR) Allergies Allergy/AdvReac Type Severity Reaction Status Date / Time venom-honey bee Allergy Severe Hives Verified 09/12/24 22:49 General Stated Complaint: Fever EDDA: 3 Review of Systems Narrative: see HPI Exam Narrative Exam Narrative: General: Alert, non-toxic, well nourished, in no acute distress. Head: Normocephalic, atraumatic Neck: Trachea midline, ?Neck supple. ENT: ?MMM.? No oropharygeal lesions or exudate. Cardiac: ?Tachycardiac, regular, no murmurs appreciated Resp: No respiratory distress. CTAB. Abd: ?Soft, non-distended, nontender : ?No suprapubic tenderness. No CVA tenderness. Extremities: ?No deformities.? No peripheral edema. Skin: Scattered blanchable erythematous macules on torso consistent with hives/urticaria. No dermatomal pattern. No vesicles or pustules. No pettechial rash. Neurologic: GCS 15. ? Moves all extremities freely against gravity. PERRL, no photophobia. No neck stiffness. - Danny. - Marley Course Vital Signs Vital signs: Vital Signs Temperature 38.8 C H 09/12/24 22:43 Pulse 119 H 09/12/24 22:43 Respiratory Rate 20 09/12/24 22:43 Blood Pressure 117/74 09/12/24 22:43 Pulse Oximetry 98 09/12/24 22:43 Temperature 38.8 C H 09/12/24 22:50 Temperature Source Oral 09/12/24 22:50 Pulse 119 H 09/12/24 22:50 Respiratory Rate 20 09/12/24 22:50 Blood Pressure 117/74 09/12/24 22:50 Blood Pressure Position Sitting 09/12/24 22:50 Pulse Oximetry 98 09/12/24 22:50 Oxygen Delivery Method Room Air 09/12/24 22:50 Oxygen Flow Rate 0 09/12/24 22:43 Pain Level 6 09/12/24 22:50 Lab/Test Results Lab/Test Results: 09/12/24 23:08 Blood Blood Culture - Pending 09/12/24 23:08 Blood Blood Culture - Pending Medical Decision Making 29yo M with hx GERD, ADHD, developmental delay, presenting for fever and headache. History from patient and mother at bedside. This morning woke with headache, as the day went on he developed cough, sore throat, rhinnorhea, and body aches. Fever noted at 9pm, checked with infrared thermometer and reportedly as high as 109F. I do think this was an accurate reading. Febrrile on arrival here at 38.8C (101.8) and tachycardia to 110's, vital signs otherwise reassuring. Non-toxic on exam, lungs CTAB, no respiratory distress. He does have scattered urticaria on his torso; no pettechial rash or clear viral xantham. Mother reports he often gets hives identical to this when 'stressed' or ill. No neck stiffness, photophobia, vomiting and - Kernig and Brudzinski; unlikely meningitits, would not get LP at this time. Is SIRS positive however suspect most likely viral URI; would not treat empirically for sepsis with abx/aggressive fluid resus. Will give tylenol and toradol for fever and headache and out of abundance of caution send blood cultures. With no shortness of breath, good O2 sat, clear lungs, and one day of symptoms unlikely pneumonia; little utility to CXR at this time. -Labs reviewed as below, CBC reassuring with no leukocytosis or anemia, CMP with no actionable abnormalities and no acidosis, lactate normal. UA not infected. -Respiratory viral swabs negative. On reassessment he reports his headache has much improved. No longer febrile. Remains slightly tachycardiac to mid 90's-low 100's; may have component of volume depletion 2/t decreased PO. Will give IVF and reassess. After fluids HR 85. Headache resolved. Approrpiate for discharge home with PCP followup. Discharge instructions and strict return precautions were reviewed with patient and mother who verbalized understanding. All questions were answered and they are in full agreement with the plan. Lab Data Lab results reviewed: Yes I reviewed the patient's lab results. Labs: 09/13/24 00:05 Blood Blood Culture - Pending 09/12/24 23:22 Blood Blood Culture - Pending Laboratory Tests Range/Units 09/12/24 09/12/24 09/13/24 22:55 23:22 00:24 WBC (4.4-10.8) 10^3/uL 7.79 RBC (4.36-5.78) 10^6/uL 4.66 Hgb (13.5-17.5) g/dL 13.9 Hct (40.0-50.0) % 40.3 MCV (80-95) fL 87 MCH (27.0-33.0) pg 29.8 MCHC (32.0-36.0) % 34.5 RDW (11.8-14.1) % 11.8 Plt Count (130-400) 10^3/uL 148 MPV (8.0-11.0) fL 9.9 Immature Gran % % 0.8 Neutrophils % % 71.4 Lymphocytes % % 4.6 Monocytes % % 19.0 Eosinophils % % 3.7 Basophils % % 0.5 Nucleated RBC % (0.0-0.3) % 0.0 Absolute Neutrophils (1.2-6.7) 10^3/uL 5.56 Absolute Lymphocytes (1.2-3.4) 10^3/uL 0.36 L Absolute Monocytes (0.1-0.8) 10^3/uL 1.48 H Absolute Eosinophils (0.0-0.7) 10^3/uL 0.29 Absolute Basophils (0.0-0.2) 10^3/uL 0.04 VBG Lactate (<or=2.0) mmol/L 0.9 Sodium (136-145) mmol/L 137 Potassium (3.5-5.1) mmol/L 3.5 Chloride (98-107) mmol/L 100 Carbon Dioxide (21.0-32.0) mmol/L 30.1 Anion Gap (3-11) mmol/L 6.9 BUN (7-18) mg/dL 17 Creatinine (0.70-1.30) mg/dL 1.1 Est GFR (CKD-EPI 2020) (mL/min/1.73m2) 93.77 Glucose (74-106) mg/dL 126 H Calcium (8.5-10.1) mg/dL 8.8 Total Bilirubin (0.2-1.0) mg/dL 0.28 AST (15-37) U/L 15 ALT (16-63) U/L 16 Alkaline Phosphatase (46-116) U/L 69 Total Protein (6.4-8.2) g/dL 7.0 Albumin (3.4-5.0) g/dL 3.8 Urine Color (Yellow) Yellow Urine Clarity (Clear) Clear Urine pH (5-8) 7.0 Ur Specific [place] (1.005-1.025) 1.015 Urine Protein (Neg-Trace) mg/dL Negative Urine Ketones (Negative) mg/dL Negative Urine Blood (Negative) Negative Urine Nitrite (Negative) Negative Urine Bilirubin (Negative) Negative Urine Urobilinogen (Up to 0.2) mg/dL 0.2 Ur Leukocyte Esterase (Negative) Negative Urine Glucose (Negative) mg/dL Negative COVID-19 Source Nasopharynx SARS-CoV-2 (PCR) (Negative) Negative Influenza Type A (PCR) (Negative) Negative Influenza Type B (PCR) (Negative) Negative RSV (PCR) (Negative) Negative Quality:SDOH Health Related Social Needs: No Data to Display PFSH All Active Problems (Updated 09/13/24 @ 01:16 by Analia Estes MD) Headache (Acute) Upper respiratory infection (Acute) Fever (Acute) Right forearm pain (Acute) Gastroesophageal reflux disease (Chronic) Developmental disorder (Chronic) Attention deficit hyperactivity disorder, 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) Medical History Acne (02/03/15) sp accutane Constipation (02/05/13) Food allergy (10/05/13) Thought to have had allergy to shellfish but then went to Allergy-Immunology and had skin testing which was negative and has been consuming shellfish since that time without issue (per mother) Patent pressure equalization (PE) tube (02/05/13) Wrist fracture, right Surgical History Status post routine circumcision Family History Mother Depression Father Alcohol use disorder Asthma Depression Heart disease Hypertension Paternal Grandfather Alcohol use disorder Maternal Grandfather Alcohol use disorder Paternal Grandmother Alcohol use disorder Other Adopted Social History Smoking/Tobacco Use Status: Never Smoking risk assessment performed?: Yes Alcohol Intake: never Drug use: Never Substance use type: does not use Adopted: Yes Caregiver/Support person: Yes Foster care: Yes Household members: family Housing: house Number of Children: 0 Communication Needs: None Education Level: high school Do you need help understanding health information?: Always 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 [employer] Pets and animals: Yes Pets and animals: dog(s) Sexually active: No Do you think of yourself as: straight/heterosexual Current gender identity: male What is your relationship status?: never How often do you talk on the phone with friends or family?: twice per week How often do you get together with friends or relatives?: three or more times per week Do you belong to any clubs or organized social groups?: yes Panel score (0-1 are the most socially isolated patients): 2 What type of physical activity do you participate in: weight lifting and additional Details: bball, golf, bowling, walking Duration: 15-30 minutes/day Frequency: daily Phoebe/Faith: None Seatbelt use: always Helmet use: Yes Drive intox or ride w/intox electric train driver: No Do you feel safe at home: Yes Do you feel safe in your relationship?: Yes
[2024-09-12] MEDS: Ketorolac 15 MG/ML VIAL IVP (23:26)
[2024-09-12] MEDS: ACETAMINOPHEN 1,000 MG/100 ML BAG 400 MG IVPB (23:26)
[2024-09-12 23:29] LABS: Lactate 0.9 mmol/L (<or=2.0)
[2024-09-12 23:34] LABS: Abs Immature Grans 0.06 10^3/uL (0.0-0.06); Absolute Basophil Count 0.04 10^3/uL (0.0-0.2); Absolute Eosinophil Count 0.29 10^3/uL (0.0-0.7); Absolute Lymphocyte Count 0.36 10^3/uL (1.2-3.4); Absolute Monocyte Count 1.48 10^3/uL (0.1-0.8); Absolute Neutrophil Count 5.56 10^3/uL (1.2-6.7); Basophils % 0.5 %; Eosinophils % 3.7 %; HCT 40.3 % (40.0-50.0); HGB 13.9 g/dL (13.5-17.5); Immature Grans % 0.8 %; Lymphocytes % 4.6 %; MCH 29.8 pg (27.0-33.0); MCHC 34.5 % (32.0-36.0); MCV 87 fL (80-95); MPV 9.9 fL (8.0-11.0); Neutrophils % 71.4 %; Platelet Count 148 10^3/uL (130-400); RBC 4.66 10^6/uL (4.36-5.78); RDW 11.8 % (11.8-14.1); RDW-SD 37.8 fL; WBC 7.79 10^3/uL (4.4-10.8)
[2024-09-12 23:41] LABS: COVID-19 PCR Negative (Negative); Influenza A PCR Negative (Negative); Influenza B PCR Negative (Negative); RSV PCR Negative (Negative)
[2024-09-12 23:42] LABS: Source Nasopharynx
[2024-09-12 23:49] LABS: ALT 16 U/L (16-63); AST 15 U/L (15-37); Albumin 3.8 g/dL (3.4-5.0); Alkaline Phosphatase 69 U/L (46-116); Anion Gap 6.9 mmol/L (3-11); BUN 17 mg/dL (7-18); Bilirubin, Total 0.28 mg/dL (0.2-1.0); CO2 30.1 mmol/L (21.0-32.0); CREATININE 1.1 mg/dL (0.70-1.30); Calcium 8.8 mg/dL (8.5-10.1); Chloride 100 mmol/L (98-107); Estimated GFR 93.77 (mL/min/1.73m2); Glucose 126 mg/dL (74-106); Potassium 3.5 mmol/L (3.5-5.1); Sodium 137 mmol/L (136-145)
[2024-09-13] VITALS (19 sets, daily range): BP systolic 108–124; BP diastolic 63–74; PULSE 83–105; RESP 16; TEMP 36.8–37.4; O2SAT 87–96
[2024-09-13] MEDS: Normal Saline 1,000 ML 1000 ML IV (00:23)
[2024-09-13 00:33] LABS: Bilirubin Negative (Negative); Blood Negative (Negative); Clarity Clear (Clear); Glucose Negative (Negative); Ketones Negative (Negative); Leukocyte Esterase Negative (Negative); Nitrite Negative (Negative); Specific Gravity 1.015 (1.005-1.025); Urobilinogen 0.2 mg/dL (Up to 0.2)
== END 2024-09-13 01:28 | disposition home or self-care (01) ==
LOC: ER 09-13 01:38
PROVIDERS: Emergency Provider Student in an Organized Health Care Education/Training Program; PCP Nurse Practitioner
DX: R50.9 Fever, unspecified (principal); J06.9 Acute upper respiratory infection, unspecified; R07.9 Chest pain, unspecified
CPT/HCPCS: 36415; 80053; 87040; 87637; 96361; 96365; 96375; 99284; 81003; 83605; 85025; J0131; J1885

== ENCOUNTER 2025-07-27 08:34 | Outpatient (CLI) | payer MEDICARE, MEDICAID, SELFPAY ==
--- NOTE | 2025-07-27 08:30 | RT.EKG_ITS ---
APPROVED REPORT Exam: Resting ECG Reason for Exam: med monitoring Patient Location: O HR:87 bpm ECG Measurements Heart Rate 87 AXIS OK 130 P 23 QRSd 103 QRS -22 QT 360 T 17 QTc 433 Conclusion Sinus rhythm...normal P axis, V-rate 50- 99 Probable left atrial enlargement...P >50mS, <-0.10mV V1 Borderline left axis deviation...QRS axis (-15,-29) RSR' in V1 or V2, probably normal variant...small R' only
== END 2025-07-27 08:35 | disposition home or self-care (01) ==
LOC: DI.KIM 08:34
PROVIDERS: PCP Nurse Practitioner Family; Visit Provider Nurse Practitioner Family
DX: F90.0 Attention-deficit hyperactivity disorder, predominantly inattentive type (principal); I51.7 Cardiomegaly
CPT/HCPCS: 93010